=== PATIENT | male | born 1995 ===

== ENCOUNTER 2023-12-15 15:21 | Emergency (ER) | payer OTHER, SELFPAY ==
[2023-12-15] VITALS (15 sets, daily range): BP systolic 107–120; BP diastolic 58–74; PULSE 103–119; RESP 13–20; TEMP 36.5–38.9; O2SAT 94–100; BMI 23.6
[2023-12-15] MEDS: ONDANSETRON 4 MG/2 ML INJ IV ×2 (15:48→19:18)
[2023-12-15 15:51] LABS: Add Manual Diff / Slide Review NO; Basophils Absolute Auto 0 /uL (0-100); Basophils Percent Auto 0.1 % (0-2); Eosinophils Absolute Auto 0 /uL (0-450); Eosinophils Percent Auto 0.2 % (2-4); Hematocrit 52.3 % (41-53); Hemoglobin 17.8 g/dL (13.5-17.5); Lymphocytes Absolute Auto 600 /uL (1100-4500); Lymphocytes Percent Auto 4.3 % (25-40); Mean Corpuscular HGB Conc 34.1 % (30-36); Mean Corpuscular Hemoglobin 32.5 PG (26-34); Mean Corpuscular Volume 95.4 fL (80-100); Monocytes Absolute Auto 700 /uL (0-900); Monocytes Percent Auto 5.1 % (3-14); Neutrophils Absolute Auto 13000 /uL (1500-7000); Neutrophils Percent Auto 90.3 % (50-75); Platelet Count 273 X10^3/uL (150-400); Red Blood Cell Count 5.48 X10^6/uL (4.5-5.9); White Blood Cell Count 14.4 X10^3/uL (4.5-11.0)
[2023-12-15] MEDS: SODIUM CHLORIDE 0.9% 1,000 ML 1000 ML IV ×2 (15:54→17:49)
[2023-12-15 15:56] LABS: Alanine Aminotransferase 26 IU/L (<50); Albumin Globulin Ratio 1.7 (1.0-2.8); Alkaline Phosphatase 73 U/L (38-126); Aspartate Aminotransferase 27 IU/L (17-59); BUN Creatinine Ratio 23.8 (6-22); Bilirubin Total 2.6 mg/dL (0.2-1.3); Blood Urea Nitrogen 19 mg/dL (9-20); Calcium 10.1 mg/dL (8.4-10.2); Carbon Dioxide 22 mmol/L (22-32); Chloride 103 mmol/L (98-107); Estimated Glomerular Filt Rate > 60 mL/min (>60); Globulin 2.9 g/dL (1.7-4.1); Glucose 123 mg/dL (70-100); HEMOLYSIS < 15 (0-50); Lipase 143 U/L (23-300); Potassium 3.9 mmol/L (3.4-5.1); Sodium 137 mmol/L (137-145); Total Protein 7.9 g/dL (6.3-8.2)
--- NOTE | 2023-12-15 16:39 | PC.NURSE ---
Pt reports feeling ill after eating some questionable ice from a [employer] fridge. Pt states his abd pain, n/v have improved while being here in the ER.
[2023-12-15 17:48] LABS: Lactate (Lactic Acid) 2.5 mmol/L (0.7-2.1)
[2023-12-15 18:05] LABS: Procalcitonin 0.11 ng/mL (<0.5)
--- NOTE | 2023-12-15 18:26 | ED.ABDPAIN ---
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 Patient states ?I think I have food poisoning?. He and his are visiting the area and staying at an [employer]. He had ?questionable? ice that he put in his drink earlier today. He was the only person who use this ice and the only person who is ill currently. Related Data Previous Rx's Medication Instructions Recorded ondansetron 4 mg disintegrating 4 mg PO Q8H PRN nausea and 12/15/23 tablet vomiting #30 tabs Allergies Allergy/AdvReac Type Severity Reaction Status Date / Time No Known Drug Allergies Allergy Verified 12/15/23 15:31 Review of Systems Review of Systems Narrative: Negative except as noted above Patient History Medical History (Updated 12/15/23 @ 21:07 by Genoveva Benoit MD) Hinton syndrome Exam Initial Vital Signs Initial Vital Signs: Vital Signs Temperature 97.7 F 12/15/23 15:27 Pulse Rate 113 H 12/15/23 15:27 Respiratory Rate 20 12/15/23 15:27 Blood Pressure 118/61 12/15/23 15:27 Pulse Oximetry 100 12/15/23 15:27 Oxygen Delivery Method Room Air 12/15/23 15:27 Const: Awake, alert, no acute distress, nontoxic appearing Cardiac: Tachycardia, regular rhythm RESP: unlabored, clear bilaterally, no wheezing GI: Soft, nontender, nondistended, no rebound, no guarding Skin: Warm, Dry, intact, no rashes Neuro: AO x3, CN II-XII grossly intact, moves all extremities Course Orders Ordered: ED Orders 12/15/23 19:48 XR chest 1V Stat 12/15/23 19:59 CT angio chest PE protocol Stat Discontinued Medications Acetaminophen (Acetaminophen 325 Mg Tablet) 975 mg PO NOW ONE Stop: 12/15/23 21:19 Last Admin: 12/15/23 21:33 Dose: 975 mg Documented By: Sodium Chloride (Normal Saline 0.9%) 1,000 mls @ 1,000 mls/hr IV BOLUS ONE Stop: 12/15/23 16:53 Last Infusion: 12/15/23 17:16 Dose: Infused Documented By: Admin: 12/15/23 15:54 Dose: 1,000 mls/hr Documented By: DOMINICK Sodium Chloride (Normal Saline 0.9%) 1,000 mls @ 1,000 mls/hr IV BOLUS ONE Stop: 12/15/23 18:25 Last Infusion: 12/15/23 20:24 Dose: Infused Documented By: Admin: 12/15/23 17:49 Dose: 1,000 mls/hr Documented By: DOMINICK Sodium Chloride (Normal Saline 0.9%) 1,000 mls @ 1,000 mls/hr IV BOLUS ONE Stop: 12/15/23 19:25 Ondansetron HCl (Ondansetron 4 Mg/2 Ml Inj) 4 mg IV NOW PRN PRN Reason: Nausea And Vomiting Last Admin: 12/15/23 19:18 Dose: 4 mg Documented By: Admin: 12/15/23 15:48 Dose: 4 mg Documented By: DOMINICK Ondansetron HCl (Ondansetron 4 Mg Odt) 4 mg PO NOW PRN PRN Reason: Nausea And Vomiting Ondansetron HCl (Ondansetron 4 Mg Odt Prepack) 1 bottle MISC DIRECTED ONE Stop: 12/15/23 21:43 Last Admin: 12/15/23 21:47 Dose: 1 bottle Documented By: Vital Signs Vital signs: Vital Signs - 8 hr 12/15/23 20:38 12/15/23 20:39 12/15/23 20:39 Temperature Pulse Rate 118 H 119 H Respiratory Rate 13 Blood Pressure 117/63 Pulse Oximetry 98 97 Oxygen Delivery Method 12/15/23 21:19 12/15/23 21:20 12/15/23 21:33 Temperature 102.0 F H 102.0 F H Pulse Rate 118 H Respiratory Rate 16 Blood Pressure 107/58 L Pulse Oximetry 97 Oxygen Delivery Method Room Air MDM - Abdominal Pain Lab Data 12/15/23 15:40 12/15/23 15:40 Labs: Lab Results 12/15/23 12/15/23 12/15/23 Range/Units 15:40 18:36 18:46 WBC 14.4 H (4.5-11.0) X10^3/uL RBC 5.48 (4.5-5.9) X10^6/uL Hgb 17.8 H (13.5-17.5) g/dL Hct 52.3 (41-53) % MCV 95.4 (80-100) fL MCH 32.5 (26-34) PG MCHC 34.1 (30-36) % RDW 13.0 (11.6-14.8) % Plt Count 273 (150-400) X10^3/uL Neut % (Auto) 90.3 H (50-75) % Lymph % (Auto) 4.3 L (25-40) % [place] % (Auto) 5.1 (3-14) % Eos % (Auto) 0.2 L (2-4) % Baso % (Auto) 0.1 (0-2) % Neut # (Auto) 31582 H (1706-1703) /uL Lymph # (Auto) 600 L (9956-3360) /uL [place] # (Auto) 700 (0-900) /uL Eos # (Auto) 0 (0-450) /uL Baso # (Auto) 0 (0-100) /uL Sodium 137 (137-145) mmol/L Potassium 3.9 (3.4-5.1) mmol/L Chloride 103 (98-107) mmol/L Carbon Dioxide 22 (22-32) mmol/L BUN 19 (9-20) mg/dL Creatinine 0.80 (0.66-1.25) mg/dL Estimated GFR > 60 (>60) mL/min BUN/Creatinine Ratio 23.8 H (6-22) Glucose 123 H (70-100) mg/dL Lactate 2.5 H 1.4 (0.7-2.1) mmol/L Calcium 10.1 (8.4-10.2) mg/dL Total Bilirubin 2.6 H (0.2-1.3) mg/dL AST 27 (17-59) IU/L ALT 26 (<50) IU/L Alkaline Phosphatase 73 (38-126) U/L Total Protein 7.9 (6.3-8.2) g/dL Albumin 5.0 (3.5-5.0) g/dL Globulin 2.9 (1.7-4.1) g/dL Albumin/Globulin Ratio 1.7 (1.0-2.8) Lipase 143 (23-300) U/L Procalcitonin 0.11 (<0.5) ng/mL Ur Bilirubin Confirm Negative (Negative) Urine RBC None seen (0-5/HPF) Urine WBC None seen (0-5/HPF) Ur Squamous Epith Cells None seen (0-5/HPF) Urine Bacteria None seen (None) Ur Culture Indicated? Specimen cultured Vol Urine Centrifuged 10ml (spun) Stl C. cayetanensis PCR Not detected (Not Detect) Stool Rotavirus (PCR) Not detected (Not Detect) Stool Adenovirus (PCR) Not detected (Not Detect) Stool Astrovirus (PCR) Not detected (Not Detect) Stool Cryptosporidium PCR Not detected (Not Detect) Stl E.coli Shiga Tox PCR Not detected (Not Detect) St Sh/Enteroin Ecoli PCR Not detected (Not Detect) Stl Enterotoxigenic E PCR Not detected (Not Detect) Stool EPEC (PCR) Not detected (Not Detect) Stl E. histolytica PCR Not detected (Not Detect) Stool Giardia Lamblia PCR Not detected (Not Detect) Stool Sapovirus (PCR) Not detected (Not Detect) Stl P. shigelloides PCR Not detected (Not Detect) St Y.enterocolitica PCR Not detected (Not Detect) Stool Vibrio (PCR) Not detected (Not Detect) Stl Vibrio cholerae PCR Not detected (Not Detect) Stl Enteroaggr Ecoli PCR Not detected (Not Detect) Stl Norovirus GI/GII PCR Detected (Not Detect) Campylobacter (PCR) Not detected (Not Detect) C. difficile Tox (PCR) Not detected (Not Detect) Salmonella (PCR) Not detected (Not Detect) Point of care testing: Urine Dip Bedside Urine Glucose Negative Bedside Urine Bilirubin + 1 Bedside Urine Ketone +++ 80 Urine Specific [place] 1.015 Bedside Urine Occult Blood - Negative Bedside Urine pH 6.0 Bedside Urine Protein - Negative Bedside Urine Urobilinogen - Negative Bedside Urine Nitrite - Negative Bedside Urine Leukocytes +/- 15 Esterase Imaging Data Chest x-ray: Radiologist's Impression: PROCEDURE: XR CHEST 1V INDICATIONS: low o2 TECHNIQUE: One view of the chest was acquired. COMPARISON: None. FINDINGS: Surgical changes and devices: None. Lungs and pleura: On this semiupright portable chest examination, no large pneumothorax or large pleural effusions are seen. No focal infiltrates are seen. Low lung volumes are noted. This causes a crowded appearance to the lung markings and limits evaluation. Mediastinum: Mediastinal contours appear normal. Heart size is normal. Bones and chest wall: No suspicious bony lesions. Overlying soft tissues appear unremarkable. IMPRESSION: Limited portable chest examination, without a significant cardiopulmonary abnormality identified. Dictated by: Rambo Live M.D. on 12/15/2023 at 19:18 Approved by: Rambo Live M.D. on 12/15/2023 at 19:18 CT scan - chest: Radiologist's Impression: PROCEDURE: CT ANGIO CHEST PE PROTOCOL INDICATIONS: onset of shortness of breath TECHNIQUE: After the administration of intravenous contrast, 2 mm thick sections acquired from the pulmonary apices to the posterior costophrenic angles. 3-dimensional maximum intensity projection (MIP) coronal and sagittal reformats were then acquired through the thorax. For radiation dose reduction, the following was used: automated exposure control, adjustment of mA and/or kV according to patient size. COMPARISON: [facility], , XR CHEST 1V, 12/15/2023, 20:08. FINDINGS: Image quality: Diagnostic. Pulmonary arteries: Pulmonary arteries are normal in size, and demonstrate no intraluminal filling defects to suggest central pulmonary embolism. Lower Neck: No enlarged lymph nodes. Thyroid: No thyroid nodules which require sonographic follow up, per consensus guidelines. Axillae: No enlarged lymph nodes. Chest Wall: Incidental note is made of bilateral gynecomastia. Bones: Unremarkable. Lungs and Pleura: No pneumothorax or pleural effusions. No consolidation or suspicious nodules. Heart: Heart size is normal. No pericardial effusion. Thoracic Vessels: No aortic aneurysm. Mediastinum and Diana: No enlarged lymph nodes. Esophagus: No wall thickening. No hiatal hernia. Upper Abdomen: Incidental note is made of an accessory splenule along the hilum of the primary spleen. Visualized upper abdomen solid organs and bowel loops appear normal. IMPRESSION: No pulmonary embolus. No acute cardiopulmonary process. Additional findings: Gynecomastia Accessory splenule Dictated by: Rambo Live M.D. on 12/15/2023 at 19:53 Approved by: Rambo Live M.D. on 12/15/2023 at 19:55 MDM Narrative Medical decision making narrative: Nontoxic appearing patient with nausea, vomiting, diarrhea, assumed to be due to contaminated water. Patient was tachycardic, however abdomen is soft, no significant reproducible tenderness to palpation. Patient received Zofran in triage and reports feeling already improved. He was currently sleeping water without recurrence of nausea or vomiting. Laboratory work is significant for WBC count 14, hemoglobin 17.8, sodium 137, potassium 3.9, creatinine 0.8, initial lactate 2.5, decreased to 1.4 after fluids. T bili noted to be 2.6, AST 27, ALT 26, alk phos 73. Patient notified of his elevated bilirubin, he states that he chronically has elevated bilirubin from his Gilbert's syndrome. Patient is still slightly tachycardic after a L of IV fluids, additional L ordered for hydration. While receiving 2 L of fluids patient noted to have brief episodes of hypoxia while sleeping. Spouse at bedside states that patient has snored last night but does not have a known history of sleep apnea. Patient is now complaining of shortness of breath, lungs are clear to auscultation bilaterally. Chest x-ray shows no acute abnormalities. With tachycardia and this new hypoxia with recent travel as a precaution CT angio was ordered. CT angio ordered. Patient's stool specimen positive for norovirus. He remains tachycardic, however he was received multiple L of IV fluids, his lactic acid has decreased to normal limits, he was tolerating p.o., and has a source of his symptoms, which is the norovirus. Patient does not know what his resting heart rate is, it was possible that this is his resting heart rate, however we have no priors for comparison. Patient was advised of all of his lab and imaging findings, recommended PCP follow up as well as a heart rate monitor that he may bring to his doctor when he goes back home to [place]. Zofran sent to pharmacy of choice. Discharge Plan Departure Patient Disposition: Home Clinical Impression: Gastroenteritis Instructions: DI for Viral Gastroenteritis -- Adult Activity Restrictions/Additional Instructions: Your laboratory work today did show a mildly elevated bilirubin, which is likely secondary to your Gilbert's syndrome. Your stool pathogen panel was negative for C. dif or other alarming pathogens. Please follow a light diet over the next several days to prevent aggravating your stomach. Your chest x-ray and CT angio of your chest were also negative for concerning findings. It should be noted that your heart rate today was slightly elevated at 110-120 beats per minute. Please follow up with your primary care physician when you get back home if you continued to have an elevated resting heart rate. Prescriptions: New ondansetron 4 mg tablet,disintegrating 4 mg PO Q8H PRN (Reason: nausea and vomiting) Qty: 30 0RF Referrals: Miscellaneous,Doctor, MD [Primary Care Provider] - Stand Alone Forms: Patient Portal/API
[2023-12-15 19:05] LABS: Lactate (Lactic Acid) 1.4 mmol/L (0.7-2.1)
--- NOTE | 2023-12-15 19:48 | DI.RAD.S_ITS ---
PROCEDURE: XR CHEST 1V INDICATIONS: low o2 TECHNIQUE: One view of the chest was acquired. COMPARISON: None. FINDINGS: Surgical changes and devices: None. Lungs and pleura: On this semiupright portable chest examination, no large pneumothorax or large pleural effusions are seen. No focal infiltrates are seen. Low lung volumes are noted. This causes a crowded appearance to the lung markings and limits evaluation. Mediastinum: Mediastinal contours appear normal. Heart size is normal. Bones and chest wall: No suspicious bony lesions. Overlying soft tissues appear unremarkable. IMPRESSION: Limited portable chest examination, without a significant cardiopulmonary abnormality identified. Dictated by: Rambo Live M.D. on 12/15/2023 at 19:18 Approved by: Rambo Live M.D. on 12/15/2023 at 19:18
--- NOTE | 2023-12-15 19:59 | DI.CT.S_ITS ---
PROCEDURE: CT ANGIO CHEST PE PROTOCOL INDICATIONS: onset of shortness of breath TECHNIQUE: After the administration of intravenous contrast, 2 mm thick sections acquired from the pulmonary apices to the posterior costophrenic angles. 3-dimensional maximum intensity projection (MIP) coronal and sagittal reformats were then acquired through the thorax. For radiation dose reduction, the following was used: automated exposure control, adjustment of mA and/or kV according to patient size. COMPARISON: [facility], CR, XR CHEST 1V, 12/15/2023, 20:08. FINDINGS: Image quality: Diagnostic. Pulmonary arteries: Pulmonary arteries are normal in size, and demonstrate no intraluminal filling defects to suggest central pulmonary embolism. Lower Neck: No enlarged lymph nodes. Thyroid: No thyroid nodules which require sonographic follow up, per consensus guidelines. Axillae: No enlarged lymph nodes. Chest Wall: Incidental note is made of bilateral gynecomastia. Bones: Unremarkable. Lungs and Pleura: No pneumothorax or pleural effusions. No consolidation or suspicious nodules. Heart: Heart size is normal. No pericardial effusion. Thoracic Vessels: No aortic aneurysm. Mediastinum and Diana: No enlarged lymph nodes. Esophagus: No wall thickening. No hiatal hernia. Upper Abdomen: Incidental note is made of an accessory splenule along the hilum of the primary spleen. Visualized upper abdomen solid organs and bowel loops appear normal. IMPRESSION: No pulmonary embolus. No acute cardiopulmonary process. Additional findings: Gynecomastia Accessory splenule Dictated by: Rambo Live M.D. on 12/15/2023 at 19:53 Approved by: Rambo Live M.D. on 12/15/2023 at 19:55
[2023-12-15 20:17] LABS: Ictotest Urine Negative (Negative); Urine Volume 10mL (spun)
[2023-12-15 20:28] LABS: Bacteria Urine None Seen; RBC Urine None Seen (0-5/HPF); Squamous Epithelial Cell Urine None Seen (0-5/HPF); WBC Urine None Seen (0-5/HPF)
[2023-12-15 20:29] LABS: Culture Indicated Urine Specimen Cultured
[2023-12-15 20:50] LABS: Adenovirus F 40/41 Not Detected (Not Detect); Astrovirus Not Detected (Not Detect); Campylobacter Not Detected (Not Detect); Clostridium difficile toxin AB Not Detected (Not Detect); Cryptosporidium Not Detected (Not Detect); Cyclospora cayetanensis Not Detected (Not Detect); Entamoeba histolytica Not Detected (Not Detect); Enteroaggregative E.coli Not Detected (Not Detect); Enteropathogenic E.coli Not Detected (Not Detect); Enterotoxigenic E.coli It/st Not Detected (Not Detect); Giardia lamblia Not Detected (Not Detect); Norovirus GI/GII Detected (Not Detect); Plesiomonsa shigelloides Not Detected (Not Detect); Rotavirus A Not Detected (Not Detect); Salmonella Not Detected (Not Detect); Sapovirus Not Detected (Not Detect); Shiga-like toxin-prod E.coli Not Detected (Not Detect); Shigella/Enteroinvasive E.coli Not Detected (Not Detect); Vibrio Not Detected (Not Detect); Vibrio cholerae Not Detected (Not Detect); Yersinia enterocolitica Not Detected (Not Detect)
[2023-12-15] MEDS: ACETAMINOPHEN 325 MG TABLET 975 MG PO (21:33)
[2023-12-15] MEDS: ONDANSETRON 4 MG ODT PREPACK 1 BOTTLE MISC (21:47)
== END 2023-12-15 21:55 | disposition home or self-care (01) ==
PROVIDERS: Emergency Medicine; Emergency Provider Emergency Medicine
DX: K52.9 Noninfective gastroenteritis and colitis, unspecified (principal); R11.2 Nausea with vomiting, unspecified; R00.0 Tachycardia, unspecified; R06.02 Shortness of breath
CPT/HCPCS: 36415; 71045; 71275; 80053; 81003; 81015; 83605; 83690; 84145; 85025; 87086; 87507; 93005; 96361; 96374; 96376; 99284; J2405; Q9967